=== PATIENT | male | born 1955 | race Caucasian/White ===

== ENCOUNTER 2017-03-23 00:53 | Emergency (ER) | payer BC ==
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
[2017-03-23 06:03] VITALS: BP 141/88
== END 2017-03-23 05:49 | disposition home or self-care (01) ==
LOC: ER 00:53
DX: Z03.89 Encounter for observation for other suspected diseases and conditions ruled out (principal); V68.0XXA Driver of heavy transport vehicle injured in noncollision transport accident in nontraffic accident, initial encounter; Y92.410 Unspecified street and highway as the place of occurrence of the external cause; Y99.0 Civilian activity done for income or pay